=== PATIENT | male | born 1995 | race Caucasian/White ===

== ENCOUNTER → 2018-02-21 | Outpatient (CLI) | payer OTHER ==
[~2018-02-21] MED LIST: ACET-1256 PO; AGM875 PO; STR10 PO
== END | disposition home or self-care (01) ==
LOC: C.LAB1850 15:19
PROVIDERS: ATTEND Internal Medicine Infectious Disease
DX: Z00.00 Encounter for general adult medical examination without abnormal findings (principal)

== ENCOUNTER 2025-09-27 15:27 | Observation (INO) ==
[2025-09-27 16:32] LABS: Hematocrit (blood only) 40.9 % (42.0-52.0); Hemoglobin 14.6 g/dL (14.0-18.0); Immature Granulocytes # (auto) 0.03 K/uL (0.01-0.20); Immature Granulocytes % (auto) 0.3 %; Mean Corpuscular Hemoglobin 30.0 pg (25.0-34.0); Mean Corpuscular Volume 84.0 fL (80.0-100.0); Platelet Count 281 K/uL (130-400); RDW Standard Deviation 38.6 fL (36.4-46.3); Red Blood Count 4.87 M/uL (4.70-6.10); White Blood Count 9.39 K/ul (4.8-10.8)
[2025-09-27 16:48] LABS: Alanine Aminotransferase 38 U/L (7-52); Albumin Globulin Ratio 1.4 (0.9-2); Albumin Level 5.0 gm/dl (3.4-5.0); Alkaline Phosphatase 78 U/L (34-104); Anion Gap 8 (3-11); Bilirubin,Total 0.7 mg/dl (0.2-1.0); Blood Urea Nitrogen 12 mg/dl (6-23); Calcium 9.5 mg/dl (8.6-10.3); Carbon Dioxide 28 mmol/L (21-32); Chloride 101 mmol/L (98-107); Globulin 3.7 gm/dl (2.5-4.0); Glucose 104 mg/dl (70-99(Fasting)); Lipase 34 U/L (11-82); Potassium 4.1 mmol/L (3.5-5.1); Sodium 137 mmol/L (136-145); Total Protein 8.7 gm/dl (6.0-8.3)
--- NOTE | 2025-09-27 17:18 | Emergency Department Note ---
Impression & Plan Appendicitis ED Provider Note CHIEF COMPLAINT: RLQ pain HISTORY OF PRESENTING ILLNESS: Patient is a 29-year-old male who presents to the emergency department today for complaints of right lower quadrant pain. He reports that for the past several weeks he has had some GI complications with diarrhea, nausea, vomiting that he related to food poisoning. That all had subsided and then over the past couple days he has developed right lower quadrant pain. He reports he saw on Facebook post about appendicitis and read it and his symptoms were similar so he wanted to be evaluated. Patient denies chest pain, sob, breathing difficulties, headache, fevers/chills, current N/V. REVIEW OF SYSTEMS: See HPI for pertinent positives and pertinent negatives. ALLERGIES: See below MEDICATIONS: See below PAST MEDICAL HISTORY: See below PHYSICAL EXAM: VITALS: Vitals are noted on the nurse's note and reviewed by myself. GENERAL: Non toxic, in no acute distress, non-diaphoretic. SKIN: Capillary refill <2 sec. MOUTH: Mucous membranes moist. Uvula midline. Airway patent. NECK: Supple without nuchal rigidity. HEART: Regular rate and rhythm without murmurs gallops or rubs. LUNGS: Clear to auscultation bilaterally without wheezes, rales or rhonchi. No retractions or accessory muscle use. ABDOMEN: Positive bowel sounds x 4. Normal tympanic percussion. Soft, nontender to palpation. No masses or hepatosplenomegaly. Rai sign negative. No CVA tenderness. No guarding, rigidity, or rebound tenderness. No focal RLQ or LLQ tenderness. MUSCULOSKELETAL: No gross musculoskeletal defects. NEURO: Patient was alert and oriented. No focal neurological deficits. DIFFERENTIAL DIAGNOSIS: Differential diagnosis includes appendicitis, diverticulitis, constipation, gastroenteritis, bowel obstruction, cholecystitis, appendicitis, inflammatory bowel disease, renal colic, PUD, biliary pathology, pancreatitis, mesenteric ischemia, aortic pathology, infection, genitourinary, UTI, perforated viscus, among others. ED COURSE AND MEDICAL DECISION MAKING: HISTORY FROM INDEPENDENT HISTORIAN: History was provided by the patient. MONITOR: Continuous alarm security or surveillance monitor: Order was placed for continuous alarm security or surveillance monitor. Patient was placed on the alarm security or surveillance monitor and continuous pulse ox. Patient was noted to be in normal sinus rhythm at an initial rate of 80 bpm per my interpretation. INTERPRETATION OF LABS: I interpreted the labs with full lab results as below in the lab section of this note. Laboratory results pertinent to the emergent complaint are discussed in the MDM section below. The patient was advised to follow up with their PCP and/or specialist(s) for further outpatient monitoring and management of any abnormal results. INTERPRETATION OF IMAGING: Imaging studies were interpreted by myself and read by radiology as per the imaging section of this note. The patient was advised to follow up with their PCP and/or specialist(s) for further outpatient management of any non-emergent abnormal findings. CHRONIC MEDICAL/SOCIAL CONDITIONS AFFECTING CARE: No social concerns were identified as barriers to patients care. ESCALATION OF CARE CONSIDERED: I considered admission on this patient due to acute appendicitis. CONSULTATIONS: I consulted with Dr. Orozco who accepts the patient for admission. Will plan for OR. SUMMARY: I examined the patient for complaints of right lower quadrant pain. A physical exam and history were performed. Nursing notes, EMR, and medication list were personally reviewed. Patient given Toradol 10 mg IM with improvement in pain and discomfort. Abdominal exam is without peritoneal signs. Patient is well- appearing and hemodynamically stable. Patient is found to have acute appendicitis on CT scan. No leukocytosis, anemia, thrombocytopenia on CBC. CMP showed no emergent findings. Lipase was 34. Urinalysis was negative for infection. Patient was given 1 L of normal saline here in the emergency department and started on cefoxitin 2 g[address] I consulted with Dr. Becerril who will plan to take the patient to the OR and he accepts the patient for admission. DIAGNOSIS: Acute appendicitis TREATMENT PLAN/DISCHARGE INSTRUCTIONS: Admit to surgery. The chart was completed utilizing [employer] Speech voice recognition software.Grammatical errors, random word insertions, pronoun errors, and incomplete sentences are an occasional consequence of this system due to software limitations, ambient noise, and hardware issues.Any formal questions or concerns about the content, text, or information contained within the body of this dictation should be directly addressed to the physician for clarification. Past Med/Surg History Problem List HIV (human immunodeficiency virus infection) Appendicitis (Acute) Social History Smoking Status: Never smoker Hx Alcohol Use: Yes Hx Substance Use: Yes Last Used Substance: Unknown Preferred Language: Yoruba Rn Trauma Required: No Beliefs That Will Affect Care: None Current Living Situation: Other Current Living Situation Comment: With friends Other Information That Helps Us Care for You: No Feels Safe at Home: Yes Allergies Allergies Allergy/AdvReac Type Severity Reaction Status Date / Time No Known Allergies Allergy Mild Verified 09/27/25 18:52 Home Meds Home Medications Medication Instructions Recorded Confirmed No Known Home Medications 09/27/25 09/27/25 Results & Data (ED) Vital Signs Vital Signs - 24 hr 09/27/25 15:39 09/27/25 17:28 09/27/25 18:41 Temperature Temperature Source Pulse Rate 108 H Pulse Rate [Apical] Pulse Rate [Radial] 85 98 H Pulse Rhythm [Apical] Pulse Rhythm [Radial] Regular Regular Pulse Strength [Apical] Respiratory Rate 18 18 18 Respiratory Effort / Characteristics Non-Labored Spontaneous Non-Labored Non-Labored Respiratory Depth Normal Normal Normal Respiratory Pattern Regular Regular Regular Blood Pressure 169/95 H Blood Pressure [Right Arm] 170/90 H 178/94 H Blood Pressure Mean 119 Blood Pressure Mean [Right Arm] 116 122 Blood Pressure Position [Right Arm] Pulse Oximetry 98 97 98 Oxygen Delivery Method Room Air Room Air Room Air Sepsis Recent Fever Within 48 Hours No Sepsis New/Unexplained Change in Mental Status No Sepsis Action Taken by Nursing No Action Required 09/27/25 18:44 09/27/25 19:00 Temperature 37.4 C Temperature Source Oral Pulse Rate 79 Pulse Rate [Apical] 90 Pulse Rate [Radial] Pulse Rhythm [Apical] Regular Pulse Rhythm [Radial] Pulse Strength [Apical] Normal Respiratory Rate 18 20 Respiratory Effort / Characteristics Non-Labored Spontaneous Respiratory Depth Normal Respiratory Pattern Regular Blood Pressure 178/94 H Blood Pressure [Right Arm] 152/92 H Blood Pressure Mean Blood Pressure Mean [Right Arm] 112 Blood Pressure Position [Right Arm] Sitting Pulse Oximetry 98 98 Oxygen Delivery Method Room Air Room Air Sepsis Recent Fever Within 48 Hours Sepsis New/Unexplained Change in Mental Status Sepsis Action Taken by Nursing Laboratory Data 09/27/25 15:48 09/27/25 15:48 Lab Results 09/27/25 Range/Units 15:48 WBC 9.39 (4.8-10.8) K/ul RBC 4.87 (4.70-6.10) M/uL Hgb 14.6 (14.0-18.0) g/dL Hct 40.9 L (42.0-52.0) % MCV 84.0 (80.0-100.0) fL MCH 30.0 (25.0-34.0) pg MCHC 35.7 (32.0-36.0) g/dL RDW Std Deviation 38.6 (36.4-46.3) fL RDW Coeff of Jose 12.8 (11.5-14.5) % Plt Count 281 (130-400) K/uL MPV 8.9 L (9.4-12.4) fL Immature Gran % (Auto) 0.3 % Neut % (Auto) 52.6 % Lymph % (Auto) 39.3 % [place] % (Auto) 7.0 % Eos % (Auto) 0.5 % Baso % (Auto) 0.3 % Neut # (Auto) 4.93 (1.40-6.50) K/uL Lymph # (Auto) 3.69 H (1.20-3.40) K/uL [place] # (Auto) 0.66 H (0.11-0.59) K/uL Eos # (Auto) 0.05 (0.00-0.50) K/uL Baso # (Auto) 0.03 (0.00-0.20) K/uL Immature Gran # (Auto) 0.03 (0.01-0.20) K/uL Sodium 137 (136-145) mmol/L Potassium 4.1 (3.5-5.1) mmol/L Chloride 101 (98-107) mmol/L Carbon Dioxide 28 (21-32) mmol/L Anion Gap 8 (3-11) BUN 12 (6-23) mg/dl Creatinine 1.06 (0.6-1.4) mg/dl Est Cr Clr Drug Dosing Not Reportable eGFR 96.22 BUN/Creatinine Ratio 11.3 (10-20) Glucose 104 H (70-99(Fasting)) mg/dl Calcium 9.5 (8.6-10.3) mg/dl Total Bilirubin 0.7 (0.2-1.0) mg/dl AST 24 (13-39) U/L ALT 38 (7-52) U/L Alkaline Phosphatase 78 (34-104) U/L Total Protein 8.7 H (6.0-8.3) gm/dl Albumin 5.0 (3.4-5.0) gm/dl Globulin 3.7 (2.5-4.0) gm/dl Albumin/Globulin Ratio 1.4 (0.9-2) Lipase 34 (11-82) U/L Administered Medications Lactated Ringer's (Lr) 1,000 mls @ 80 mls/hr IV .[id number] SILVANA Stop: 09/30/25 21:00 Last Admin: 09/27/25 21:18 Dose: 80 mls/hr Documented By: TRICIA Discontinued Medications Bupivacaine HCl/Epinephrine Bitart (Bupivacaine/Epinephrine 0.5% Mpf 1:200,000 30 Ml Vial) Confirm Administered Dose 30 ml .ROUTE .STK-MED ONE Stop: 09/27/25 19:11 Last Admin: 09/27/25 20:00 Dose: 20 ml Documented By: JL Sodium Chloride (Nss) 1,000 mls @ 999 mls/hr IV .[id number] ONE Stop: 09/27/25 18:14 Last Infusion: 09/27/25 21:02 Dose: Infused Documented By: Admin: 09/27/25 17:29 Dose: 999 mls/hr Documented By: LORNE Cefoxitin Sodium (Mefoxin) 2,000 mg in 60 mls @ 100 mls/hr IV NOW STA Stop: 09/27/25 18:58 Last Infusion: 09/27/25 21:02 Dose: Infused Documented By: Admin: 09/27/25 18:52 Dose: 100 mls/hr Documented By: DAVID Ioversol (Optiray 320 100ml) 94 ml IV ONCE ONE Stop: 09/27/25 17:54 Last Admin: 09/27/25 17:53 Dose: 94 ml Documented By: Imaging Data Radiologist's Impression: Abdomen/Pelvis CT 09/27/25 16:15 Clinical History: Abdominal pain Technique: Axial computed tomography images were obtained of the abdomen and pelvis after the administration of intravenous contrast. No prior CT is available for comparison. Findings: The liver is overall of normal size, attenuation, and contour with no sign of cirrhosis or significant fatty infiltration. No liver mass lesion is seen. The portal vein is patent. The gallbladder appears unremarkable. No bile duct dilatation is noted. The spleen is mildly enlarged measuring 14.3 cm. No focal splenic lesion is evident. The pancreas appears normal with no sign of acute or chronic pancreatitis and no mass lesion noted. The pancreatic duct is of normal caliber. The adrenal glands appear unremarkable. No definite renal or proximal ureteral calculi are seen on this contrast-enhanced study. There is no hydronephrosis or perinephric stranding. No renal mass lesion is identified. The aorta is of normal caliber. No abdominal adenopathy is seen. The stomach appears normal. There is no sign of small bowel obstruction. The colon appears unremarkable. The appendix is thick-walled and mildly dilated with mild adjacent soft tissue stranding. No free intraperitoneal air is identified. There is a minimal amount of free pelvic fluid No distal ureteral or bladder calculi are seen. No bladder mass lesion is evident. The iliac arteries are of normal caliber. No pelvic adenopathy is noted. The lungs bases appear clear. No fracture is identified. No focal osseous lesion is seen Impression: 1. Acute appendicitis. There is no sign of perforation or abscess formation 2. Minimal amount of free pelvic fluid 3. Mild splenomegaly ACT 112: Positive. There are findings on this exam that require communication between the performing entity and the patient following Patient Test Result Information Act ([place] ACT 112) guidelines. Electronically signed by Frandy Shane 09-27-2025 6:09 PM Discharge Plan Visit Data Chief Complaint: Flank Pain Stated Complaint: FLANK PAIN ED Provider: Diogenes Webb ED Midlevel Provider: Karen Seymour Discharge Problem: Appendicitis Patient Disposition: Admitted As Inpatient Condition: Good Discharge Instructions Interventions: ED Discharge Assessment Last Done: 09/27/25 18:44 Discharge Problem: Appendicitis Qualifiers: Appendicitis type: acute appendicitis Acute appendicitis type: with localized peritonitis Appendicitis gangrene presence: without gangrene Appendicitis perforation presence: without perforation Appendicitis abscess presence: without abscess Qualified Code(s): K35.30 - Acute appendicitis with localized peritonitis, without perforation or gangrene
[2025-09-27] MEDS: SODIUM CHLORIDE 0.9% 1,000 ML IV ONE (17:29)
[2025-09-27 17:44] LABS: Appearance Urine Clear (Clear); Glucose Urine UA Negative (Negative)
[2025-09-27] MEDS: OPTIRAY 320 100ml IV ONE (17:53)
--- NOTE | 2025-09-27 18:09 | CT Scan Report ---
Clinical History: Abdominal pain Technique: Axial computed tomography images were obtained of the abdomen and pelvis after the administration of intravenous contrast. No prior CT is available for comparison. Findings: The liver is overall of normal size, attenuation, and contour with no sign of cirrhosis or significant fatty infiltration. No liver mass lesion is seen. The portal vein is patent. The gallbladder appears unremarkable. No bile duct dilatation is noted. The spleen is mildly enlarged measuring 14.3 cm. No focal splenic lesion is evident. The pancreas appears normal with no sign of acute or chronic pancreatitis and no mass lesion noted. The pancreatic duct is of normal caliber. The adrenal glands appear unremarkable. No definite renal or proximal ureteral calculi are seen on this contrast-enhanced study. There is no hydronephrosis or perinephric stranding. No renal mass lesion is identified. The aorta is of normal caliber. No abdominal adenopathy is seen. The stomach appears normal. There is no sign of small bowel obstruction. The colon appears unremarkable. The appendix is thick-walled and mildly dilated with mild adjacent soft tissue stranding. No free intraperitoneal air is identified. There is a minimal amount of free pelvic fluid No distal ureteral or bladder calculi are seen. No bladder mass lesion is evident. The iliac arteries are of normal caliber. No pelvic adenopathy is noted. The lungs bases appear clear. No fracture is identified. No focal osseous lesion is seen Impression: 1. Acute appendicitis. There is no sign of perforation or abscess formation 2. Minimal amount of free pelvic fluid 3. Mild splenomegaly ACT 112: Positive. There are findings on this exam that require communication between the performing entity and the patient following Patient Test Result Information Act ([place] ACT 112) guidelines. Electronically signed by Frandy Shane 09-27-2025 6:09 PM
[2025-09-27] MEDS ORDERED: ONDANSETRON INJ 2 MG/ML 2 ML VIAL ONE (18:44)
[2025-09-27] MEDS ORDERED: LIDOCAINE 2% 2 ML VIAL/AMP(20MG/ML) INFIL ONE (18:44)
[2025-09-27] MEDS ORDERED: DEXAMETHASONE SOD INJ 4 MG/ML VIAL ONE (18:44)
[2025-09-27] MEDS ORDERED: MIDAZOLAM HCL 1 MG/ML 2ML VIAL ONE (18:44)
[2025-09-27] MEDS ORDERED: PROPOFOL IV EMULSION 10 MG/ML 20 ML VIAL IV ONE ×2 (18:44→20:34)
[2025-09-27] MEDS ORDERED: ROCURONIUM BROMIDE 10 MG/ML 5 ML VIAL IV ONE ×2 (18:44→19:41)
[2025-09-27] MEDS: cefOXitin 2,000 MG/60 ML BAG IV STA (18:52)
--- NOTE | 2025-09-27 19:08 | Anesthesiology Consultation ---
Date of Service September 27, 2025 Assessment & Plan Chart Review Chart Review: Acceptable Risk for Surgery Consults Requested none History Surgery Operation Date: 09/27/25 19:15 Proposed Procedures p Laparoscopic Appendectomy - Ibrahima Orozco MD Height/Weight Height: 5 ft 11 in Allergies Allergy/AdvReac Type Severity Reaction Status Date / Time No Known Allergies Allergy Mild Verified 09/27/25 18:52 Medications Home Medications Medication Instructions Recorded Confirmed Last Taken No Known Home Medications 09/27/25 09/27/25 Unknown NPO Date Last Intake of Fluids: 09/27/25 Time Last Intake of Fluids: 15:00 Last Intake of Fluids Comment: "COFFEE AND CREAM" Date Last Intake of Solids: 09/27/25 Time Last Intake of Solids: 12:00 Last Intake of Solids Comment: "SOUP" Social History Smoking Status: Never smoker Physical Exam Vital Signs Last Vital Signs Temp 37.4 C 09/27/25 19:00 Pulse 90 09/27/25 19:00 Resp 20 09/27/25 19:00 BP 152/92 H 09/27/25 19:00 Pulse Ox 98 09/27/25 19:00 O2 Del Method Room Air 09/27/25 19:00 Testing Laboratory Results 09/27/25 15:48 09/27/25 15:48 Urine Color Yellow 09/27/25 Unknown Urine Appearance Clear (Clear) 09/27/25 Unknown Urine pH 6.5 (4.5-7.5) 09/27/25 Unknown Ur Specific [place] 1.009 (1.000-1.030) 09/27/25 Unknown Urine Protein Negative (Negative) 09/27/25 Unknown Urine Glucose (UA) Negative (Negative) 09/27/25 Unknown Urine Ketones Negative (Negative) 09/27/25 Unknown Urine Nitrite Negative (Negative) 09/27/25 Unknown Ur Leukocyte Esterase Negative (Negative) 09/27/25 Unknown
--- NOTE | 2025-09-27 19:08 | History & Physical Report ---
Date of Service September 27, 2025 Assessment & Plan (1) Appendicitis: Plan: 29 YO with acute abdominal pain and CT and exam findings consistent with acute appendicitis -IV mefoxin -exam with peritoneal signs in early appendicits -discussed options and will proceed with lap appendectomy (2) HIV (human immunodeficiency virus infection): Plan: continue meds History of Present Illness Primary Care Provider: Shama Avila MD This is a 29YO male who with right lower quadrant pain. He had a recent illness with diarrhea, nausea, vomiting that he related to food poisoning which subsided and then over the past couple days he has developed right lower quadrant pain. He denies current fevers/chills, or N/V. HIV +. A CT scan shows acute appendicitis. Allergies Allergy/AdvReac Type Severity Reaction Status Date / Time No Known Allergies Allergy Mild Verified 09/27/25 18:52 Home Medications Medication Instructions Recorded Confirmed Type No Known Home Medications 09/27/25 09/27/25 History Past Med/Surg History Problem List (Updated 09/27/25 @ 19:15 by Ibrahima Orozco MD) HIV (human immunodeficiency virus infection) Appendicitis Social History Smoking Status: Never smoker Preferred Language: Portuguese Feels Safe at Home: Yes Review of Systems no fever and no chills no problem reported no problem reported no cough and no dyspnea no chest pain + abdominal pain; no nausea, no vomiting and no change in bowel habits no dysuria no problem reported no problem reported no localized weakness and no generalized weakness no behavioral changes no fatigue no easy bleeding and no easy bruising Physical Exam Constitutional: WD/WN, vitals as above Eyes: no scleral abnormality ENMT: external ear and nose normal, oropharynx normal Neck: trachea midline Respiratory: normal respiratory effort, lungs clear to auscultation Cardiovascular: RRR, no murmur, no edema Gastrointestinal (Abdomen): Inspection/Auscultation: abdomen normal to inspection and normal bowel sounds; abdomen not distended Percussion/Palpation: + abdomen tender, + guarding and abdomen soft; abdomen not rigid Musculoskeletal: Head/Neck/Chest: normocephalic and head atraumatic Skin: no rashes, warm and dry Results & Data Vital Signs (Past 12 Hours) Vital Signs Temp Pulse Pulse Pulse Resp BP BP 09/27/25 19:00 37.4 C 90 20 152/92 H 09/27/25 18:44 79 18 178/94 H 09/27/25 18:41 98 H 18 178/94 H 09/27/25 17:28 85 18 170/90 H 09/27/25 15:39 108 H 18 169/95 H Pulse Ox O2 Del Method 09/27/25 19:00 98 Room Air 09/27/25 18:44 98 Room Air 09/27/25 18:41 98 Room Air 09/27/25 17:28 97 Room Air 09/27/25 15:39 98 Room Air Diagnostic Findings Clinical History: Abdominal pain Technique: Axial computed tomography images were obtained of the abdomen and pelvis after the administration of intravenous contrast. No prior CT is available for comparison. Findings: The liver is overall of normal size, attenuation, and contour with no sign of cirrhosis or significant fatty infiltration. No liver mass lesion is seen. The portal vein is patent. The gallbladder appears unremarkable. No bile duct dilatation is noted. The spleen is mildly enlarged measuring 14.3 cm. No focal splenic lesion is evident. The pancreas appears normal with no sign of acute or chronic pancreatitis and no mass lesion noted. The pancreatic duct is of normal caliber. The adrenal glands appear unremarkable. No definite renal or proximal ureteral calculi are seen on this contrast-enhanced study. There is no hydronephrosis or perinephric stranding. No renal mass lesion is identified. The aorta is of normal caliber. No abdominal adenopathy is seen. The stomach appears normal. There is no sign of small bowel obstruction. The colon appears unremarkable. The appendix is thick-walled and mildly dilated with mild adjacent soft tissue stranding. No free intraperitoneal air is identified. There is a minimal amount of free pelvic fluid No distal ureteral or bladder calculi are seen. No bladder mass lesion is evident. The iliac arteries are of normal caliber. No pelvic adenopathy is noted. The lungs bases appear clear. No fracture is identified. No focal osseous lesion is seen Impression: 1. Acute appendicitis. There is no sign of perforation or abscess formation 2. Minimal amount of free pelvic fluid 3. Mild splenomegaly
[2025-09-27] MEDS ORDERED: PROMETHAZINE HCL 6.25 MG in SODIUM CHLORIDE 0.9% 50 ML IV PRN (19:11)
[2025-09-27] MEDS ORDERED: ONDANSETRON INJ 2 MG/ML 2 ML VIAL IV PRN ×2 (19:11→21:01)
[2025-09-27] MEDS ORDERED: ATROPINE SULFATE 0.1 MG/ML 10ML SYR IV PRN (19:11)
[2025-09-27] MEDS ORDERED: HYDROmorphone INJ 2 MG/ML SYR/VIAL IV PRN (19:11)
[2025-09-27] MEDS ORDERED: SUGAMMADEX SODIUM 200 MG/2 ML VIAL IV ONE (19:51)
[2025-09-27] MEDS: BUPIVACAINE/EPINEPHRINE 0.5% MPF 1:200,000 30 ML VIAL ONE (20:00)
--- NOTE | 2025-09-27 20:11 | Operative Report ---
Post Operative Report Pre & Post Diagnosis Operation Date: 09/27/25 19:15 Acute appendicitis I identified the patient and participated in the time-out.: Yes Procedure Operation Date: 09/27/25 19:15 Laparoscopic appendectomy Surgeon Ibrahima Orozco MD Shipping Assistant none Estimated Blood Loss 10 Findings Consistent with Post-Op Diagnosis Specimens Appendix to pathology Drains none Anesthesia Type General Complications none Disposition Accompanied Patient To Recovery: No Disposition: Recovery Room Indications This is a 29-year-old male who came to the ED with complaints of right lower quadrant abdominal pain. A workup was done where CT showed early acute appendicitis. He had peritoneal findings on exam and therefore we recommend a laparoscopic appendectomy. He understands all the risks and wishes to proceed. Description of Procedure The patient was taken to the OR and underwent excellent general anesthesia. Their abdomen was prepped and draped in normal sterile fashion. A transverse supraumbilical incision was made, towel clamps were used to create tension on the abdominal wall as an 11 port was placed in the supraumbilical position, inserted with visualization gently into the peritoneal cavity. Good pneumoperitoneum was achieved to about 15 mmHg pressure. Once this was done, a visualized 12 mm left lower quadrant port , a 5mm suprapubic port , and a 5mm right upper quadrant port were all placed in normal fashion. Patient was then placed in head down and rolled to the left. A good diagnostic lap was performed. They had obvious acute appendicitis. The cecum was grasped with an atraumatic grasper. A grasper was then was then used to grasp the tip of the appendix. The mesoappendix was splayed open and a harmonic scalpel was used to take down the mesoappendix. The base of the appendix was identified and an Endo SHAI stapler was used to transect the appendix at its base. The appendix was then removed from the left lower quadrant port. The appendix was sent for pathologic evaluation. The pneumoperitoneum was re-established after the 12 mm port was replaced. Saline was then used to irrigate the abdomen. There was no active bleeding nor any other abnormalities noted in the abdomen. The patient was then placed back in neutral position, the ports were removed and the pneumoperitoneum decompressed. The 12mm port fascia was then closed using a 0 Vicryl. The skin was then anesthetized with 0.5% Marcaine with epinephrine local. Interrupted Vicryl is used to close the skin. Dermabond was used to reinforce the incisions. The patient tolerated procedure without complications was sent to the postop recovery period of observation. They will be sent to the floor for the rest of their care. I attest to the content of the Intraoperative Record and any orders documented therein. Any exceptions are noted below.
[2025-09-27] MEDS ORDERED: ACETAMINOPHEN 325 MG TAB PO PRN (21:01)
[2025-09-27] MEDS ORDERED: MoRPHine SULFATE 2 MG/ML CARP IV PRN (21:01)
[2025-09-27] MEDS ORDERED: MoRPHine SULFATE 4 MG/ML 1 ML CARP\\VIAL IV PRN (21:01)
[2025-09-27] MEDS: LACTATED RINGER'S 1,000 ML IV SCH (21:18)
--- NOTE | 2025-09-27 21:47 | Anesthesiology Progress Note ---
Date of Service September 27, 2025 Anesthesia Post Procedure Vital Signs Vital Signs: Temp Pulse Pulse Pulse Pulse Resp BP 09/27/25 21:27 36.7 C 89 16 09/27/25 20:45 36.7 C 90 20 09/27/25 20:35 86 21 09/27/25 20:25 98 H 16 09/27/25 20:19 36.4 C L 110 H 22 09/27/25 19:00 37.4 C 90 20 09/27/25 18:44 79 18 178/94 H 09/27/25 18:41 98 H 18 09/27/25 17:28 85 18 09/27/25 15:39 108 H 18 169/95 H BP Pulse Ox O2 Del Method 09/27/25 21:27 121/77 94 Room Air 09/27/25 20:45 130/72 94 Room Air 09/27/25 20:35 132/87 94 Room Air 09/27/25 20:25 134/82 94 Room Air 09/27/25 20:19 137/87 95 Room Air 09/27/25 19:00 152/92 H 98 Room Air 09/27/25 18:44 98 Room Air 09/27/25 18:41 178/94 H 98 Room Air 09/27/25 17:28 170/90 H 97 Room Air 09/27/25 15:39 98 Room Air Pain Intensity Right Abdomen: Pain Intensity: 3 Transfer of Care Handoff Completed per policy Notes Mental Status: alert / awake / arousable and participated in evaluation Patient Amnestic to Procedure: Yes Nausea / Vomiting: adequately controlled Pain: adequately controlled Airway Patency, RR, SpO2: stable & adequate BP & HR: stable & adequate Hydration State: stable & adequate Anesthetic Complications: no major complications apparent
[2025-09-28] MEDS: cefOXitin 2,000 MG in DEXTROSE 5 % MINI-B 50 ML IV SCH (02:39)
[2025-09-28 03:38] VITALS: O2SAT 95
[2025-09-28 07:59] VITALS: RESP 17
--- NOTE | 2025-09-28 10:37 | Discharge Summary ---
Date of Service September 28, 2025 Admission HPI Per Admitting Provider This is a 29YO male who with right lower quadrant pain. He had a recent illness with diarrhea, nausea, vomiting that he related to food poisoning which subsided and then over the past couple days he has developed right lower quadrant pain. He denies current fevers/chills, or N/V. HIV +. A CT scan shows acute appendicitis. Admission Exam (Per Admitting) Constitutional well developed and well nourished Respiratory normal respiratory effort Cardiovascular Rate/Rhythm: regular rate and regular rhythm Gastrointestinal (Abdomen) Inspection/Auscultation: abdomen normal to inspection Percussion/Palpation: + abdomen tender, + guarding and abdomen soft Musculoskeletal Head/Neck/Chest: normocephalic and head atraumatic Skin no rashes, warm and dry Discharge Data Consultations 09/28/25 00:35 ED Decision to Admit Stat Procedures Performed Operation Date: 09/27/25 19:15 Actual Procedures p Laparoscopic Appendectomy(Not Applicable) - Ibrahima Orozco MD Hospital Course (1) Appendicitis: This is a 29-year-old male admitted through the emergency department with acute appendicitis. He was taken to the OR and underwent uncomplicated laparoscopic appendectomy. He did well postop tolerating a diet with good pain control and will be discharged on postoperative day #1.
[2025-09-28 11:45] VITALS: BP 120/75; PULSE 65; TEMP 98.1
== END 2025-09-28 12:38 | disposition home or self-care (01) ==
LOC: 3N 15:27 → ED 15:27